=== PATIENT | male | born 1995 | race Caucasian/White ===

== ENCOUNTER 2017-05-17 16:42 | Emergency (ER) | payer SELFPAY ==
[~2017-05-17] VITALS: Ht 188 cm; Wt 70.0 kg
[~2017-05-17 16:42] MED LIST: Z.0.NO CURRENT MEDS
[2017-05-17 16:46] VITALS: BP 115/61; PULSE 55; RESP 18; TEMP 98.5; O2SAT 100
[2017-05-17] MEDS ORDERED: CEPH-460 PO (17:27)
[2017-05-17] MEDS ORDERED: BACT800T5 PO (17:27)
[2017-05-17] MEDS ORDERED: CEPHALEXIN MONOHYDRATE 500 MG CAP PO ONE (17:30)
[2017-05-17] MEDS ORDERED: SULFAMETHOXAZOLE-TRIMETHOPRIM DS 800-160 MG TAB PO ONE (17:30)
--- NOTE | 2017-05-17 17:30 | PD ---
HPI Chief Complaint: Skin Problem Time Seen by Provider: 17:25 Travel History International Travel<30 days: No Contact w/Intl Traveler<30days: No Traveled to known affect area: No History of Present Illness HPI 21-year-old male presents for evaluation of an area of skin redness and tenderness on the left side of his chin. He first noticed it one week ago. He reports that he had a large villeda that he had to shave in order to visualize it better. Initially he thought that he was bitten by a spider although he does not recall any bug bites or puncture wounds. He reports that he attempted to drain it yesterday and there was a large amount of purulent drainage. He reports pain, aching, worse with palpation. Denies fevers or chills. No other complaints. PFSH Past Medical History Medical History: Denies Significant Hx Immunizations Current: Yes Tetanus Vaccination: > 5 Years Influenza Vaccination: No Past Surgical History Surgical History: No Previous Surgery Social History Alcohol Use: No Tobacco Use: No Substance Use: No Allergies-Medications (Allergen,Severity, Reaction): Coded Allergies: No Known Allergies (Verified Adverse Reaction, Unknown, 05/17/17) Reported Meds & Prescriptions Reported Meds & Active Scripts Active Keflex (Cephalexin) 500 Mg Cap 500 Mg PO Q8H Bactrim DS (Sulfamethoxazole-Trimethoprim) 800-160 Mg Tab 1 Tab PO BID Review of Systems Except as stated in HPI: all other systems reviewed are Neg Physical Exam Narrative GENERAL: Well-nourished male in no acute distress SKIN: Warm and dry. 1 cm fluctuant abscess left lower chin. No erythema. HEAD: Atraumatic. Normocephalic. EYES: Pupils equal and round. No scleral icterus. No injection or drainage. ENT: No nasal bleeding or discharge. Mucous membranes pink and moist. Poor dentition. NECK: Trachea midline. No JVD. No lymphadenopathy. CARDIOVASCULAR: Regular rate and rhythm. No murmur appreciated. RESPIRATORY: No accessory muscle use. Clear to auscultation. Breath sounds equal bilaterally. Data Data Last Documented VS Vital Signs Date Time Temp Pulse Resp B/P (MAP) Pulse Ox O2 Delivery O2 Flow Rate FiO2 05/17/17 16:46 98.5 55 18 115/61 (79) 100 Room Air Orders Orders Wound Culture And Gram Stain (11/15/17 17:25) Ed Discharge Order (05/17/17 17:25) Sulfamet-Trimeth Ds 800-160 Mg (Bactrim (05/17/17 17:30) Cephalexin (Keflex) (05/17/17 17:30) [facility] Medical Decision Making Medical Screen Exam Complete: Yes Emergency Medical Condition: Yes Medical Record Reviewed: Yes Differential Diagnosis Abscess, carbuncle, lymphadenitis, cellulitis, submandibular abscess, periodontal abscess Narrative Course Examination reveals a 1 m cutaneous abscess on the left lower jaw. The plan is for needle aspiration, wound culture for which he verbally consents. He'll be started on Bactrim and Keflex. He understands to return for any new or worsening symptoms. Procedures Procedure Narrative Abscess needle puncture: The jaw was prepped with Betadine. A 18-gauge needle was used to puncture the abscess. Purulent drainage was expressed. Wound culture performed. Patient tolerated procedure well. Diagnosis Primary Impression: Facial abscess Additional Instructions: Antibiotics as prescribed. Tylenol or Motrin for pain. Warm compresses several times a day 10 minutes at a time. Return for new or worsening symptoms. Med/Other Pt SpecificInfo: Prescription(s) given, Wound Care Scripts Cephalexin (Keflex) 500 Mg Cap 500 MG PO Q8H for Infection, #30 CAP 0 Refills Prov: Bruno Oneal MD 05/17/17 Sulfamethoxazole-Trimethoprim (Bactrim DS) 800-160 Mg Tab 1 TAB PO BID for Infection, #20 TAB 0 Refills Prov: Bruno Oneal MD 05/17/17 Disposition: 01 DISCHARGE HOME Condition: Stable Lowell Garcia May 17, 2017 17:30
== END 2017-05-17 17:42 | disposition home or self-care (01) ==
LOC: NEPK 16:42
DX: L02.01 Cutaneous abscess of face (principal)
CPT/HCPCS: 10160; 86403; 87070; 87205

== ENCOUNTER 2017-07-06 11:46 | Emergency (ER) | payer SELFPAY ==
[~2017-07-06 11:46] MED LIST changes: +BACT800T5 PO; +CEPH-460 PO; -Z.0.NO CURRENT MEDS
[2017-07-06 11:47] VITALS: BP 122/64; PULSE 61; RESP 18; TEMP 97.9; O2SAT 99
--- NOTE | 2017-07-06 12:22 | PD ---
HPI Chief Complaint: Medical Clearance Time Seen by Provider: 11:55 Travel History International Travel<30 days: No Contact w/Intl Traveler<30days: No Traveled to known affect area: No History of Present Illness HPI 21-year-old male presents to the emergency room requesting a note to return to work. Patient took 2 days off of work last week because he was sick and was told by his job that he needed a note to return. States symptoms included nausea, vomiting, and headache. They have all resolved at this time. He does not have a primary care physician. History Social History Alcohol Use: No Tobacco Use: No Allergies-Medications (Allergen,Severity, Reaction): Coded Allergies: No Known Allergies (Verified Adverse Reaction, Unknown, 07/06/17) Reported Meds & Prescriptions Reported Meds & Active Scripts Active No Active Prescriptions or Reported Medications Review of Systems Except as stated in HPI: all other systems reviewed are Neg Physical Exam Narrative GENERAL: Well-nourished, well-developed male in no acute distress. Afebrile. Ambulatory. \SKIN: Focused skin assessment warm/dry. HEAD: Normocephalic. EYES: No scleral icterus. No injection or drainage. NECK: Supple, trachea midline. No JVD or lymphadenopathy. CARDIOVASCULAR: Regular rate and rhythm without murmurs, gallops, or rubs. RESPIRATORY: Breath sounds equal bilaterally. No accessory muscle use. GASTROINTESTINAL: Abdomen soft, non-tender, nondistended. Data Data Last Documented VS Vital Signs Date Time Temp Pulse Resp B/P (MAP) Pulse Ox O2 Delivery O2 Flow Rate FiO2 07/06/17 11:47 97.9 61 18 122/64 (83) 99 Room Air [facility] Medical Screen Exam Complete: Yes Emergency Medical Condition: No Differential Diagnosis Work note Narrative Course 21-year-old male presents to the emergency room requesting a note to return to work. Patient took 2 days off of work because he was sick last week. His job requested he get a note to return to work. He has no complaints at this time. Physical exam is unremarkable. There are no urgent or emergent medical conditions at this time. A medical screening exam was performed: At the time of evaluation the presenting medical condition was determined not to be of an emergent nature. The patient was given the option of receiving additional care, but declined. Patient was given options for additional community resources from which to obtain care. The Patient Has Been advised to seek medical attention for their presenting complaint. The patient has been advised to return to the ER at any time if an emergent condition develops. Primary Impression: Encounter for medical screening examination Scripts No Active Prescriptions or Reported Meds Disposition: 01 DISCHARGE HOME Condition: Stable Mattie Scruggs Jul 06, 2017 12:22
== END 2017-07-06 12:22 | disposition left against medical advice (07) ==
LOC: NEPK 11:46
DX: Z76.89 Persons encountering health services in other specified circumstances (principal)
CPT/HCPCS: 99281